=== PATIENT | female | born 1990 | race Native Hawaiian/Other Pacific Islander ===

== ENCOUNTER 2016-11-05 18:09 | Emergency (ER) | payer OTHER ==
[~2016-11-05] VITALS: Ht 167.6 cm; Wt 114.2 kg
[2016-11-05 18:09] VITALS: BP 167/99
[2016-11-05] MEDS ORDERED: PRENTAB55 PO (18:39)
[2016-11-05] MEDS ORDERED: IRON18TA2 PO (18:39)
[2016-11-05] MEDS ORDERED: ASPI81TA85 PO (18:39)
[2016-11-05] MEDS ORDERED: CEPHALEXIN 500 MG CAP PO ONE (20:45)
[2016-11-05] MEDS ORDERED: KEFL500C17 PO (20:45)
== END 2016-11-05 21:12 | disposition home or self-care (01) ==
LOC: M ED 18:09
DX: L03.113 Cellulitis of right upper limb (principal)

== ENCOUNTER 2016-11-30 10:32 | Inpatient (IN) | payer OTHER ==
[2016-11-30] VITALS (21 sets, daily range): BP systolic 119–202; BP diastolic 68–121
[~2016-11-30] VITALS: Ht 170.2 cm; Wt 112.0 kg
[2016-11-30] MEDS: PRENATAL VITAMINS CHEWABLE TABLET PO SCH (09:00)
[2016-11-30] MEDS: DOCUSATE SODIUM 100 MG CAP PO SCH ×2 (09:00→20:55)
[~2016-11-30 10:32] MED LIST: ASPI81TA85 PO; IRON18TA2 PO; KEFL500C17 PO; PRENTAB55 PO
[2016-11-30] MEDS ORDERED: ceFAZolin 2 GM/D5W 50 ML IV BAG (J0690) As Ordered ONE (11:30)
[2016-11-30] MEDS ORDERED: BICITRA 30ML SOLN UDC As Ordered ONE (11:30)
[2016-11-30] MEDS ORDERED: LACTATED RINGER'S 1000 ML IV STA (11:33)
[2016-11-30] MEDS ORDERED: LABE30TA PO (11:47)
[2016-11-30] MEDS ORDERED: hydrALAZINE INJ 20 MG/ML VIAL As Ordered ONE (11:49)
[2016-11-30] MEDS ORDERED: MORPHINE PRES-FREE INJ 10 MG/10 ML VIAL (J2274) As Ordered ONE (11:52)
[2016-11-30] MEDS ORDERED: OXYTOCIN INJ 10 UNITS/ML VIAL (J2590) As Ordered ONE (11:53)
[2016-11-30] MEDS ORDERED: hydrALAZINE INJ 20 MG/ML VIAL IV STA ×2 (11:56→12:03)
[2016-11-30 12:16] LABS: MEAN CORPUSCULAR HEMOGLOBIN 22.3 pg (27.0-33.0); MEAN CORPUSCULAR HGB CONC 31.7 g/dl (32.0-36.5); MEAN CORPUSCULAR VOLUME 70.4 fl (80.0-96.0); RED CELL DISTRIBUTION WIDTH 17.1 % (11.5-14.5)
[2016-11-30] MEDS ORDERED: METOCLOPRAMIDE INJ 10MG/2ML VIAL (J2765) IV PRN ×3 (12:26→14:45)
[2016-11-30] MEDS ORDERED: NALOXONE INJ 0.4 MG/1 ML VIAL (J2310) IV PRN ×2 (12:26)
[2016-11-30] MEDS ORDERED: NALBUPHINE HCL 10 MG/ML AMP (J2300) IV PRN (12:26)
[2016-11-30] MEDS ORDERED: ONDANSETRON 4MG/2ML VIAL (J2405) IV PRN ×2 (12:26→14:45)
[2016-11-30 12:27] LABS: ALT/SGPT 10 U/L (12-78); AST/SGOT 26 U/L (15-37); BILIRUBIN,TOTAL 0.6 MG/DL (0.2-1.0); CREATININE FOR GFR 0.57 MG/DL (0.55-1.02); GLOMERULAR FILTRATION RATE > 60.0 (>60); URIC ACID 6.6 MG/DL (2.6-6.0)
[2016-11-30] MEDS ORDERED: ePHEDrine SULFATE 25 MG/5 ML(5MG/ML) SYRINGE As Ordered ONE (12:48)
[2016-11-30] MEDS ORDERED: ONDANSETRON 4MG/2ML VIAL (J2405) As Ordered ONE (12:48)
[2016-11-30] MEDS ORDERED: PHENYLephrine HCL 500 MCG/5 ML (100MCG/ML) SYRINGE (J2370) As Ordered ONE (12:55)
[2016-11-30 13:04] LABS: CORD GAS ABE V -4.1; CORD GAS HCO3 V 21.4 MEQ/L; CORD GAS O2 SAT V 42.5 %; CORD GAS PH V 7.336 UNITS; CORD GAS PO2 V 22.3 mmHg; CORD GAS SBC V 19.7 MEQ/L; CORD GAS TCO2 V 22.7 MEQ/L
[2016-11-30 13:05] LABS: CORD GAS ABE A -0.7; CORD GAS HCO3 A 27.2 MEQ/L; CORD GAS PH A 7.289 UNITS; CORD GAS PO2 A 11.9 mmHg; CORD GAS SBC A 21.8 MEQ/L
[2016-11-30] MEDS ORDERED: KETOROLAC 60 MG/2 ML VIAL (J1885) As Ordered ONE (13:11)
[2016-11-30] MEDS ORDERED: RHOGAM 300 MCG (1500 IU) INJ (J2790) IM SCH (13:30)
[2016-11-30] MEDS ORDERED: PERCOCET 5MG/325MG TAB PO PRN ×3 (13:30→14:45)
[2016-11-30] MEDS ORDERED: MEASLES,MUMPS,RUBELLA VACCINE INJ (MMR-II) (90707) SC SCH (13:30)
[2016-11-30] MEDS ORDERED: MAG Sulf (L&D) 4 GM/100 ML 4 GM in APPROPRIATE DILUENT 1 EA IV ONE (13:30)
[2016-11-30] MEDS ORDERED: CALCIUM GLUCONATE 1,000 MG in D5W MINI-BAG PLUS 100 ML IV PRN (13:30)
[2016-11-30] MEDS ORDERED: MAGNESIUM *L&D* 4 GM/100 ML BAG (40MG/ML) (J3475) As Ordered ONE (13:35)
[2016-11-30] MEDS ORDERED: MAGNESIUM SULFATE 4% INJ 20GM/500ML (40MG/ML) (J3475) As Ordered ONE (13:35)
[2016-11-30] MEDS: LR 1,000 ML IV SCH (14:13)
[2016-11-30] MEDS: MAG Sulf (OBGYN) 20GM/500ML 20,000 MG in APPROPRIATE DILUENT 1 EA IV SCH (14:15)
--- NOTE | 2016-11-30 14:16 | HPEPDOC ---
Obstetrical History & Physical General Date of Admission Nov 30, 2016 at 11:10 History of Present Illness Note entered after delivery/ 26 y/o at 38+3 with reg ctxs. No VB/ or LOF. Pos FM. Upon first vitals, noted to be severe range hypertensive. Also noted to have a late decel on NST. Reg ctx's. Eventually noted to have persistent late decels. H/O delivery in . Team engaged quickly to get an IV placed and labs drawn and Anesthesia called as well as Family Medicine Physician Assistant due to my recommendation for immediate ERCS. Declined a BTL. Chief Complaint: Contractions, term Care Care: Limited Care (seen only 3 times at 25, 29, 32 weeks) Dating Final EDC: Dec 11, 2016 Final EDC by: LMP, 2nd trimester (US) Antepartum Course Diagnos(e)s Noncompliance with care, first visit at 25 wks H/O Pre-E X2, on baby ASA Proteinuria 396 mg at 26 weeks Was on an unknown dose of Labetalol (pt is unsure-states last took it 2-3 days ago) Prior with second baby for NRFHT, desired a TOLAC Past Medical History Past Obstetrical History : Past Obstetrical History: Multigravida (2013 7 lbs c/b Pre-E, PCD 4 lbs at 36 wks c/b Pre-E, NRFHT) Type of Delivery: Spontaneous Vaginal Del. [employer] History: No pertinent history Past Medical History Medical History denies Surgical History: section (x1) Family History Significant Family History: No pertinent family hx Social History Marital Status: Family situation: Spouse/partner home Psychosocial History: No pertinent psych hx * Smoker: non-smoker Alcohol: Denies Drugs: denies Abuse Violence Screening Have you been hit/kicked/slapp: No Have you been sexually assault: No Imunizations Tdap status: current Influenza Status: declined Allergies Coded Allergies: No Known Drug Allergy (Verified Allergy, Unknown, 11/05/16) Medications Scheduled Aspirin (Aspir-81) 81 Mg Tab, 81 MG PO DAILY Cephalexin Monohydrate (Keflex) 500 Mg Cap, 500 MG PO Q6H Ferrous Fumarate (Iron) 18 Mg Tab, 18 MG PO DAILY Labetalol HCl (Labetalol HCl) 300 Mg Tab, 200 MG PO DAILY Multivitamins/ ( 19) 1 Tab Tab, 1 TAB PO DAILY Physical Examination Physical Examination GENERAL: Alert and oriented times three. BREAST: . ABDOMEN: Gravid and non-tender to touch. FETUS: vertex (VTX) by sterile vaginal examination, /-/. HEART RATE: Regular rate and rhythm. LUNGS: Clear to auscultation (CTA). EXTREMITIES: slight edema. No clonus. Deep tendon reflexes (DTRs) 2+ Vital Signs/I&O Vital Signs Date Time Temp Pulse Resp B/P (MAP) Pulse Ox O2 Delivery O2 Flow Rate FiO2 11/30/16 12:07 83 18 167/90 (115) 11/30/16 10:49 97.0 Room Air Laboratory Data 24H LABS Laboratory Tests 2 11/30/16 11:25: Serology Scanned Report Hepatitis B Testing 11/30/16 12:00: Glomerular Filtration Rate > 60.0, Creatinine 0.57, Aspartate Amino Transf (AST/ SGOT) 26, Alanine Aminotransferase (ALT/SGPT) 10L, Lactate Dehydrogenase 322H, Total Bilirubin 0.6, Uric Acid 6.6H, Syphilis Serology NONREACTIVE 11/30/16 12:35: Cord Arterial Blood pH 7.289, Cord Arterial Blood PCO2 58.0, Cord Arterial Blood PO2 11.9, Cord Arterial Blood HCO3 27.2, Cord Arterial Blood Total CO2 29.0, Cord Arterial Blood Base Excess -0.7, Cord Arterial Base Excess (Standard 21.8, Cord Arterial Bld Oxygen Saturation 15.0, Cord Venous Blood pH 7.336, Cord Venous Blood PCO2 41.0, Cord Venous Blood PO2 22.3, Cord Venous Blood HCO3 21.4, Cord Venous Blood Total CO2 22.7, Cord Venous Base Excess (Actual) -4.1, Cord Venous Base Excess (Standard) 19.7, Cord Venous Blood Oxygen Saturation 42.5 CBC/BMP Laboratory Tests 11/30/16 12:00 Red Blood Count 5.23, Mean Corpuscular Volume 70.4 L, Mean Corpuscular Hemoglobin 22.3 L, Mean Corpuscular Hemoglobin Concent 31.7 L, Red Cell Distribution Width 17.1 H, Aspartate Amino Transf (AST/SGOT) 26, Alanine Aminotransferase (ALT/SGPT) 10 L, Lactate Dehydrogenase 322 H, Total Bilirubin 0.6, Uric Acid 6.6 H Urine Culture: No Growth Pertinent Laboratoy Data Blood Type: A+ RBC Antibody Screen: Negative HIV: Negative Hepatitis B: Negative Hepatitis C: Unknown Rapid Plasma Reagin: Nonreactive Rubella: Immune Varicella: Immune Chlamydia/Gonorrhea: Negative Group B Streptococcus: Unknown Quad Screen Test: Declined Cystic Fibrosis: Declined Glucose Tolerance Test: 94 Anatomy Ultrasound Ultrasound Date: August 17, 2016 Placenta Location: Posterior Normal Anatomy: Yes Placenta Previa: No Steroid Therapy Steroid Therapy: No Assessment Variability: Minimal to moderate Decelerations: Late Tocometer Frequency: regular Duration: less than 60 seconds Strength: palpated as moderate Assessment/Plan Assessment 26 y/o with minimal PNC and obvious Pre-Eclampsia (severe features) with h/ o same. Hydralazine 10 mg X2 given within 10 min of each other. As soon as labs were drawn and IV's X2 were in place and the OR was ready, count done, taken to the OR to wait for the CBC results. PLT's found to be >200 and immediate spinal done followed by immediate ERCS. See op note/dictation. Normal pre-e profile other than uric acid 6.6 and LDH 322. Plan Admit and orient. Organizational Development Specialist and consent obtained for immediate ERCS, declines BTL Labs and intravenous (IV) per unit protocol with addition of pre-e profile Lactated Ringers (LR): Bolus 500 mL, then at 125mL/hr. JEANNA,ALEX Sheppard MD Nov 30, 2016 14:16
[2016-11-30] MEDS ORDERED: fentaNYL 100 MCG/2 ML INJECTION (J3010) IV PRN (14:45)
[2016-11-30] MEDS: KETOROLAC 30 MG/ML VIAL (J1885) IV SCH (18:57)
[2016-12-01] VITALS (24 sets, daily range): BP systolic 129–179; BP diastolic 73–102
[2016-12-01] MEDS: LR 1,000 ML IV SCH
[2016-12-01] MEDS: MAG Sulf (OBGYN) 20GM/500ML 20,000 MG in APPROPRIATE DILUENT 1 EA IV SCH ×2 (00:01→09:58)
[2016-12-01] MEDS: KETOROLAC 30 MG/ML VIAL (J1885) IV SCH ×3 (01:16→12:51)
[2016-12-01 07:02] LABS: MEAN CORPUSCULAR HGB CONC 31.2 g/dl (32.0-36.5); MEAN CORPUSCULAR VOLUME 70.4 fl (80.0-96.0); RED CELL DISTRIBUTION WIDTH 17.2 % (11.5-14.5); WHITE BLOOD COUNT 9.3 K/mm3 (4.0-10.0)
[2016-12-01] MEDS: DOCUSATE SODIUM 100 MG CAP PO SCH ×2 (08:52→21:36)
[2016-12-01] MEDS: PRENATAL VITAMINS CHEWABLE TABLET PO SCH (08:52)
--- NOTE | 2016-12-01 09:14 | IPNPDOC ---
Text Note Date of Service The patient was seen on 12/01/16. NOTE POD1 prog note s/p RCS for NRFHT c/b Pre-E with severe features States feeling well, no complaints of CP/LP/SOB/vis changes, slight intermittent PAYNE only. No heavy VB or upper abd pain. Pain controlled. On Mag sulfate. Mcintosh in place. VSSAF, no severe pressures since surgery CTAB RRR Ut at U-2, firm Ext 1+ edema DTR's absent Inc CDI, bandage removed no strikethru UO adeq, 100 cc/hr last 4-5 hrs, barely adequate prior, 30-40 cc/hr HCT this AM 31.7, PLT 287 Mag level done at 630: 6.2 due to decreasing DTR's a/p: Doing well. Other than DTR's, no signs mag toxicity and the Mag level was therapeutic/expected. Cont Mag until minimum 24 hrs postop. Not currently needing PO BP meds. SBAR to Dr Love now. Sessions Demetrio MONTAÑO, I+O VSDemetrio I+O Laboratory Tests 11/30/16 12:00 Red Blood Count 5.23, Mean Corpuscular Volume 70.4 L, Mean Corpuscular Hemoglobin 22.3 L, Mean Corpuscular Hemoglobin Concent 31.7 L, Red Cell Distribution Width 17.1 H, Aspartate Amino Transf (AST/SGOT) 26, Alanine Aminotransferase (ALT/SGPT) 10 L, Lactate Dehydrogenase 322 H, Total Bilirubin 0.6, Uric Acid 6.6 H 12/01/16 06:24 Red Blood Count 4.50, Mean Corpuscular Volume 70.4 L, Mean Corpuscular Hemoglobin 22.0 L, Mean Corpuscular Hemoglobin Concent 31.2 L, Red Cell Distribution Width 17.2 H Vital Signs Date Time Temp Pulse Resp B/P (MAP) Pulse Ox O2 Delivery O2 Flow Rate FiO2 12/01/16 08:47 71 18 138/85 (102) 12/01/16 06:45 98.9 11/30/16 18:45 99 11/30/16 17:45 Room Air I&O- Last 24 Hours up to 6 AM 12/01/16 05:59 Intake Total 2980 ml Output Total 1623 ml Balance 1357 ml SESSIONS,ALEX Sheppard MD Dec 01, 2016 09:14
[2016-12-01] MEDS ORDERED: NIFEdipine 10 MG CAP PO ONE (17:30)
[2016-12-01 17:47] LABS: MEAN CORPUSCULAR HEMOGLOBIN 22.1 pg (27.0-33.0); MEAN CORPUSCULAR HGB CONC 31.5 g/dl (32.0-36.5); MEAN CORPUSCULAR VOLUME 70.2 fl (80.0-96.0); RED CELL DISTRIBUTION WIDTH 17.5 % (11.5-14.5); WHITE BLOOD COUNT 7.7 K/mm3 (4.0-10.0)
[2016-12-01] MEDS: IBUPROFEN 800 MG TAB PO SCH (21:35)
[2016-12-02 00:15] VITALS: BP 130/80
[2016-12-02 02:00] VITALS: BP 133/82
[2016-12-02] MEDS: IBUPROFEN 800 MG TAB PO SCH ×3 (05:30→20:39)
[2016-12-02 06:04] VITALS: BP 136/87
[2016-12-02] MEDS: PRENATAL VITAMINS CHEWABLE TABLET PO SCH (08:31)
[2016-12-02] MEDS: DOCUSATE SODIUM 100 MG CAP PO SCH ×2 (08:31→20:40)
[2016-12-02 10:00] VITALS: BP 142/87
[2016-12-02 18:00] VITALS: BP 148/81
[2016-12-02 22:18] VITALS: BP 138/90
[2016-12-03 02:00] VITALS: BP 159/91
[2016-12-03 03:39] VITALS: BP 152/96
[2016-12-03 04:00] VITALS: BP 158/96
[2016-12-03] MEDS: IBUPROFEN 800 MG TAB PO SCH ×2 (04:00→13:43)
[2016-12-03] MEDS ORDERED: LABETALOL 200 MG TAB PO ONE (04:30)
[2016-12-03 04:33] VITALS: BP 158/96
[2016-12-03 06:28] VITALS: BP 133/89
--- NOTE | 2016-12-03 08:38 | RO ---
DATE OF PROCEDURE: 11/30/2016 PREPROCEDURE DIAGNOSES: 1. Prior delivery. 2. Preeclampsia with severe features. 3. Non-reassuring heart tracing. POSTPROCEDURE DIAGNOSES: 1. Prior delivery. 2. Preeclampsia with severe features. 3. Non-reassuring heart tracing. 4. Meconium-stained fluid. 5. Obvious intrauterine growth restriction. PROCEDURE: Repeat delivery. SURGEON: Dr. Tee Roche HR COORDINATOR: Dr. Jonathan Koehler. ANESTHESIA: Spinal. ESTIMATED BLOOD LOSS: 750 mL. DRAINS: 50 mL of dark thick urine in the Mcintosh catheter at the end of the case. FLUIDS: Lactated Ringers 1500 mL. PREOPERATIVE ANTIBIOTICS: 2 grams Ancef IV. SPECIMENS: Placenta and uterine curettings. FINDINGS: Pfannenstiel skin incision left transverse uterine incision thick meconium, female, Apgars 5 and 8, 4 pounds, 5 ounces, 1950 grams, ratty leftover membranes throughout that were persistently adherent and meconium-stained as well. INDICATION: The patient is a G3, P2 who came to the labor and delivery unit with regular painful contractions and no other complaints. She denied any headache or abdominal pain other than the intermittent contractions that she clocked as every 5 minutes. Her blood pressures over the next 30 minutes were noted to be in systolic range 202 to 165 and diastolic range 88 to 121. As soon as an IV was placed and labs were drawn, she received two doses of hydralazine each 10 mg within about 10 minute of each other which brought the pressures down to low severe range. Of note, she was also having repetitive late decelerations after most of the contractions with periods of minimal variability. Due to her history of having a section delivery only one year ago, and despite her cervix being dilated at 5 cm, therefore in active labor, I recommended that we undergo a repeat delivery due to the non-reassuring heart tracing and the preeclampsia with severe features. The patient agreed and informed consent was obtained. The patient declined having a tubal ligation at this time. Of note, the patient was only seen three times in the clinic starting at 25 weeks and she missed her 36-weeks appointment two weeks ago. DESCRIPTION OF PROCEDURE: The patient was taken to the operating room with two IVs in place and her labs still pending. She was placed in the dorsal supine position with a left-espana tilt and a Mcintosh catheter was placed as well as sequential compression devices (SCDs) lower extremity compression devices. As soon as the platelets came back as normal (above 200). The patient was sat up and a spinal anesthetic was easily obtained. Post spinal heart tones were in the 120s and the baseline in the triage area prior to going to the operating room was 150s. Therefore, I had the nurses do a rapid Betadine prep and we quickly scrubbed our hands and draped the patient. We did a non-emergent , however, we moved very quickly. We were fortunate to find no incidence of scar tissue intraperitoneally. Moving back to the actual surgery, the Pfannenstiel was made over her prior incision down to the layer of the fascia, which was nicked in the midline and extended bilaterally. The fascia was tented up with Christian clamps and the underlying rectus muscle resected off superiorly and inferiorly. The rectus muscles were in the midline and the peritoneum breeched with my digit and quick exploration revealed on significant scar tissue. Bladder blade was placed. Bladder flap was easily created and a left transverse uterine incision was performed. The monotypist, Dr. Dowd was in the room due to the presence of non-reassuring heart tracing prior to the surgery. As we were delivering the baby, a triple nuchal cord was reduced times three. Meconium stained fluid was noted and we delivered a very small infant through the uterine incision with fundal pressure assisting in keeping the heart in flexed position. We quickly clamped the cord, cut the cord and handed the off to the waiting resuscitation team without having the making a significant gasp or cry. Cord blood was obtained as well as cord gases, which were arterial 7.29 with a base excess of 0.7 and venous 7.34 with a base access of 4.1. The placenta was then delivered under traction and noted to be very small and ratty. Many attempts to delivery the ratty meconium-stained adherent membranes that were adhering to the inner lining of the uterine cavity were resistant, therefore, we teased a significant amount of this off ring forceps. I then called for two 4 x 4s, which were counted. I then soaked these in normal saline, draped it over my glove and these were significantly successful in helping to remove these adherent meconium stained membranes from the lining of the uterus. I also called for a banjo curet and I thoroughly curetted the inner lining of the uterine cavity. As much of this left-over adherent membranes were sent to pathology as could be collected from the surgical field. The placenta will also be sent for pathology. The uterus was then closed with a running locked suture of 0 Vicryl from left to right. An imbrication stitch was used of 0 Monocryl to reinforce the uterine incision. Fallopian tubes and ovaries were normal in appearance. We then copiously irrigated behind the uterus and returned the uterus to its anatomical state, which was noted to be firm with Pitocin running wide open. The pelvic gutters were irrigated and evacuated bilaterally and inspection of the uterine incision showed hemostasis. The peritoneum was closed with a running suture of #3-0 Vicryl from top to bottom and the fascia was closed from left to right with a running suture of 0 Vicryl. Prior to closing the fascia, the rectus belly was re-inspected and found to be hemostatic. The subcutaneous tissue was copiously irrigated and made to be hemostatic and closed with a #3-0 Vicryl from left to right without difficulty and the skin was closed with a running subcuticular #4-0 Monocryl. Steri-Strips were placed as well as a pressure dressing. The patient's legs were frogged and the uterus was noted to be U-1 firm and a bimanual exam evacuated a small amount of clots and debris from the vagina. The patient tolerated the procedure well and her blood pressure was maintained in normal range throughout the procedure by anesthesia and the patient was transferred to the postanesthesia care area on labor and delivery with plans IV magnesium sulfate with a loading dose of 4 and a maintenance dose of 2 for a minimum of 24 hours. All counts consisting of needle, instrument and sponges were correct times three. The two Ray-Alex sponges I used to help curet the inner lining of the uterine cavity were visually counted and re-counted both before and after their use. They were never maintained on the field in any way, shape or form.
[2016-12-03] MEDS: DOCUSATE SODIUM 100 MG CAP PO SCH (08:48)
[2016-12-03] MEDS: PRENATAL VITAMINS CHEWABLE TABLET PO SCH (08:48)
--- NOTE | 2016-12-03 09:02 | DS.PDOC ---
Discharge Summary General Date of Admission Nov 30, 2016 at 11:10 Date of Discharge [id number] Discharge Summary PROCEDURES PERFORMED DURING STAY: Repeat Delivery ADMITTING DIAGNOSIS: 1. Pre-eclampsia with severe features and non-reassuring heart tracing diagnosed at time of triage presentation, limited care (3 visits only) DISCHARGE DIAGNOSES: 1. 4 lb infant with meconium stained fluid and obvious growth restriction; NICU admit for 2 weeks HOSPITAL COURSE: Pre-eclampsia with severe features and non-reassuring heart tracing diagnosed at time of triage presentation, underwent repeat delivery, see operative note. Received magnesium sulfate IV post-op. Needed to be started on oral Labetalol. Blood Pressures controlled (nothing severe range in the last day) with this med. DISCHARGE MEDICATIONS: Motrin, Percocet, Colace, Lanolin, Labetalol Physical exam: see note from this morning LABORATORY DATA: Please see below. ACTIVITY: as tolerated. Nothing in vagina for 6 weeks. No bathing for 4 weeks. No driving for 2 weeks. DIET: regular DISPOSITION:stable TIME SPENT ON DISCHARGE: Greater than 15 minutes. Sessions Vital Signs/I&Os Vital Signs Date Time Temp Pulse Resp B/P (MAP) Pulse Ox O2 Delivery O2 Flow Rate FiO2 12/03/16 06:28 97.2 84 16 133/89 (104) 12/02/16 18:00 100 12/02/16 06:04 Room Air Discharge Medications Scheduled Aspirin (Aspir-81) 81 Mg Tab, 81 MG PO DAILY, (Reported) Cephalexin Monohydrate (Keflex) 500 Mg Cap, 500 MG PO Q6H Ferrous Fumarate (Iron) 18 Mg Tab, 18 MG PO DAILY, (Reported) Labetalol HCl (Labetalol HCl) 300 Mg Tab, 200 MG PO DAILY, (Reported) Multivitamins/ ( 19) 1 Tab Tab, 1 TAB PO DAILY, (Reported) Allergies Coded Allergies: No Known Drug Allergy (Verified Allergy, Unknown, 11/05/16) ALEX MEEKS MD Dec 03, 2016 09:02
--- NOTE | 2016-12-03 09:05 | IPNPDOC ---
Text Note Date of Service The patient was seen on 12/03/16. NOTE POD3 prog note States feeling well, no complaints. No heavy VB. Pain controlled. Ambulatory. Voiding. Bonding well with baby in the NICU. VSSAF, no severe range BP's in >24 hrs, most nl or mild range CTAB RRR Ut at U-3, firm Ext no CCE Inc CDI a/p: Doing well. Discharge. Labetalol 200 BID added at [facility] Sessions VS,Demetrio, I+O VSDemetrio I+O Vital Signs Date Time Temp Pulse Resp B/P (MAP) Pulse Ox O2 Delivery O2 Flow Rate FiO2 12/03/16 06:28 97.2 84 16 133/89 (104) 12/02/16 18:00 100 12/02/16 06:04 Room Air SESSIONS,ALEX Sheppard MD Dec 03, 2016 09:05
[2016-12-03] MEDS ORDERED: COLA100C5 PO (09:30)
[2016-12-03] MEDS ORDERED: LABE10TAB PO (09:30)
[2016-12-03] MEDS ORDERED: IBUP-1114 PO (09:30)
[2016-12-03] MEDS ORDERED: OXYC1TAB23 PO (09:30)
[2016-12-03] MEDS ORDERED: LABETALOL 200 MG TAB PO SCH (21:00)
== END 2016-12-03 18:25 | disposition home or self-care (01) | DRG 766 ==
LOC: M LDO 10:32 → M LDI 11:10 → M OBS 12-01 16:31
PROVIDERS: ADMIT Obstetrics & Gynecology; ATTEND Obstetrics & Gynecology
PROC: 10D00Z1 Extraction of Products of Conception, Low, Open Approach (ICD-10-PCS; principal; 2016-11-30 12:15)
DX: O14.14 Severe pre-eclampsia complicating childbirth (principal); Z3A.38 38 weeks gestation of pregnancy; O34.211 Maternal care for low transverse scar from previous cesarean delivery; O76 Abnormality in fetal heart rate and rhythm complicating labor and delivery; O69.82X0 Labor and delivery complicated by other cord entanglement, without compression, not applicable or unspecified; O77.0 Labor and delivery complicated by meconium in amniotic fluid; O73.0 Retained placenta without hemorrhage; O99.02 Anemia complicating childbirth; Z37.0 Single live birth; D64.9 Anemia, unspecified

== ENCOUNTER 2017-05-21 23:45 | Emergency (ER) | payer OTHER ==
[2017-05-22] MEDS: diphenhydrAMINE 25 MG CAP PO (01:00)
[2017-05-22] MEDS: FAMOTIDINE 20 MG TAB PO (01:00)
[2017-05-22] MEDS: predniSONE 20 MG TAB PO (01:00)
== END 2017-05-22 01:07 | disposition home or self-care (01) ==
LOC: M ED 23:45
DX: R22.0 Localized swelling, mass and lump, head (principal); T36.1X5A Adverse effect of cephalosporins and other beta-lactam antibiotics, initial encounter
CPT/HCPCS: 99283